=== PATIENT | female | born 1955 | race Caucasian/White ===

== ENCOUNTER 2019-01-30 18:53 | Inpatient (IN) | payer SELFPAY ==
[~2019-01-30] VITALS: Ht 167.6 cm; Wt 69.2 kg
[2019-01-30] MEDS ORDERED: IV NORMAL SALINE 500ML BAG 500 ML IV ONE (19:30)
[2019-01-30] MEDS ORDERED: ONDANSETRON PF 4 MG/2 ML VIAL. IV ONE ×2 (19:30→21:45)
[2019-01-30 19:46] LABS: BILIRUBIN,URINE NEGATIVE (NEG); CLARITY,URINE CLEAR; COLOR,URINE YELLOW; NITRITE,URINE NEGATIVE (NEG); PH,URINE 5.5; PROTEIN,URINE NEGATIVE (NEG-TRACE); UROBILINOGEN,URINE 0.2 mg/dL (0.2 mg/dL)
[2019-01-30 19:55] LABS: HEMATOCRIT 41.5 % (36.0-47.0); HEMOGLOBIN 14.2 g/dL (12.0-15.5); RED BLOOD COUNT 4.62 x10^6/uL (3.50-5.40); RED CELL DISTRIBUTION WIDTH 13.3 % (11.5-14.5)
[2019-01-30 20:01] LABS: RBC,URINE OCC /HPF (0-2)
[2019-01-30 20:02] LABS: BACTERIA,URINE FEW /HPF (0-FEW); SQUAMOUS EPITHELIAL CELL,UR FEW /LPF
[2019-01-30 20:10] LABS: CALCIUM 9.8 mg/dL (8.5-10.1); CREATININE 0.9 mg/dL (0.6-1.0); GFR 63.2; POTASSIUM 3.9 mmol/L (3.5-5.1)
[2019-01-30 20:15] LABS: ALBUMIN/GLOBULIN RATIO 1.1 (1.0-1.7); TOTAL BILIRUBIN 0.6 mg/dL (0.2-1.0); TOTAL PROTEIN 7.5 g/dL (6.4-8.2)
[2019-01-30] MEDS ORDERED: IOHEXOL 300 MG/ML 100ML VIAL. IV ONE (20:30)
[2019-01-30] MEDS ORDERED: MORPHINE SULFATE 2 MG/ML VIAL. IV ONE (21:00)
--- NOTE | 2019-01-30 21:00 | RAD ---
CT scan of the abdomen and pelvis with contrast 01/30/2019 CLINICAL HISTORY: Periumbilical pain. Nausea and constipation for several days TECHNIQUE: After the intravenous administration of 75 cc of Omnipaque 300, contiguous, 5 mm axial sections were obtained through the abdomen and pelvis. One or more of the following individualized dose reduction techniques were utilized for this study: 1. Automated exposure control. 2. Adjustment of the mA and/or kV according to patient size. 3. Use of iterative reconstruction technique. FINDINGS: Images through the lung bases demonstrate minimal dependent subsegmental atelectasis bilaterally. Rounded low-attenuation lesions are seen involving the superior liver which measure 3 mm 5 mm in size. These are consistent with hepatic cysts. The spleen, pancreas, adrenal glands and kidneys are within normal limits. The abdominal aorta tapers normally. The gallbladder is well-distended. No free fluid or free air is seen within the abdomen. The appendix is well-visualized and is within normal limits Dilated fluid-filled mid/distal jejunal loops are seen within the mid/lower abdomen. A transition point in the caliber of the bowel is seen in region of the distal jejunum/proximal ileum within the mid pelvis. The mid/distal ileum is normal in caliber. These findings are consistent with a small bowel obstruction. Images through pelvis demonstrate the urinary bladder to be contracted. Calcifications are seen within the pelvis consistent with phleboliths. A moderate amount of free fluid is seen within the pelvis. Degenerative changes are seen involving lower thoracic and mid and lower lumbar spine along with both hips. IMPRESSION: Findings are seen consistent with a small bowel obstruction as discussed above. Electronically signed by: Yosvany Rodriguez MD (01/30/2019 8:57 PM) [facility]
[2019-01-30] MEDS ORDERED: ONDANSETRON PF 4 MG/2 ML VIAL. IV PRN (21:30)
[2019-01-30] MEDS ORDERED: MORPHINE SULFATE 2 MG/ML VIAL. IV PRN (21:30)
--- NOTE | 2019-01-30 21:31 | PHYS DOC ---
Past Medical History Past Medical History: No Pertinent History Past Surgical History: Hysterectomy Additional Past Surgical Histo: BACK SX Alcohol Use: Rarely Drug Use: None Adult General Chief Complaint Chief Complaint: ABDOMINAL PAIN HPI HPI Patient is a 63 year old [female] who presents with [generalized abdominal pain starting today the pain comes more severely asked every 90 minutes. Reports pain has been increasingly worse throughout the does report she has had some constipation the last few days, has tried some laxatives, otherwise move 4-5 small bowel movements today, but nothing that felt like it was much of a bowel movement at all. States she has had prior abdominal surgeries, hysterectomy several years ago. States she does feel a bit nauseous, denies any vomiting today.] Review of Systems Review of Systems Constitutional: Denies fever or chills [] Respiratory: Denies cough or shortness of breath [] Cardiovascular: No additional information not addressed in HPI [] GI: Reports sharp abdominal pain, nausea, denies vomiting, bloody stools or diarrhea reports some constipation over the last 2 days[] : Denies dysuria or hematuria [] Musculoskeletal: Denies back pain or joint pain [] Integument: Denies rash or skin lesions [] Neurologic: Denies headache, focal weakness or sensory changes [] Endocrine: Denies polyuria or polydipsia [] All other systems were reviewed and found to be within normal limits, except as documented in this note. Current Medications Current Medications Current Medications Medications (Trade) Dose Ordered Sig/[facility] Start Time Stop Time Status Last Admin Dose Admin Iohexol (Omnipaque 300 Mg/ml) 75 ml 1X ONCE 01/30/19 20:30 01/30/19 20:31 DC 01/30/19 20:34 75 ML Morphine Sulfate (Morphine Sulfate) 2 mg 1X ONCE 01/30/19 21:00 01/30/19 21:01 DC 01/30/19 21:30 2 MG Ondansetron HCl (Zofran) 4 mg 1X ONCE 01/30/19 19:30 01/30/19 19:45 DC 01/30/19 19:49 4 MG Sodium Chloride 500 ml @ 500 mls/hr 1X ONCE 01/30/19 19:30 01/30/19 20:29 DC 01/30/19 19:49 500 MLS/HR Allergies Allergies Allergies Coded Allergies Type Severity Reaction Last Updated Verified No Known Drug Allergies 01/30/19 No Physical Exam Physical Exam Constitutional: Well developed, well nourished, no acute distress, non-toxic appearance. [] HENT: Normocephalic, atraumatic, bilateral external ears normal, oropharynx moist, no oral exudates, nose normal. [] Cardiovascular:Heart rate regular rhythm, no murmur [] Lungs & Thorax: Bilateral breath sounds clear to auscultation [] Abdomen: Bowel sounds normal, soft, no tenderness, no masses, no pulsatile masses. Slightly decreased bowel movement sounds to right side[] Skin: Warm, dry, no erythema, no rash. [] Back: No tenderness, no CVA tenderness. [] Extremities: No tenderness, no cyanosis, no clubbing, ROM intact, no edema. [] Neurologic: Alert and oriented X 3, normal motor function, normal sensory function, no focal deficits noted. [] Psychologic: Affect normal, judgement normal, mood normal. [] Current Patient Data Vital Signs Vital Signs Date Time Temp Pulse Resp B/P (MAP) Pulse Ox O2 Delivery O2 Flow Rate FiO2 01/30/19 21:00 62 136/65 (88) 98 Room Air 01/30/19 19:00 98.4 14 98.4 Lab Values Laboratory Tests Test 01/30/19 19:05 01/30/19 19:45 Urine Collection Type Unknown Urine Color Yellow Urine Clarity Clear Urine pH 5.5 Urine Specific [place] 1.025 Urine Protein Negative mg/dL (NEG-TRACE) Urine Glucose (UA) Negative mg/dL (NEG) Urine Ketones (Stick) 40 mg/dL (NEG) Urine Blood Negative (NEG) Urine Nitrite Negative (NEG) Urine Bilirubin Negative (NEG) Urine Urobilinogen Dipstick 0.2 mg/dL (0.2 mg/dL) Urine Leukocyte Esterase Trace (NEG) Urine RBC Occ /HPF (0-2) Urine WBC 1-4 /HPF (0-4) Urine Squamous Epithelial Cells Few /LPF Urine Bacteria Few /HPF (0-FEW) White Blood Count 13.0 x10^3/uL (4.0-11.0) H Red Blood Count 4.62 x10^6/uL (3.50-5.40) Hemoglobin 14.2 g/dL (12.0-15.5) Hematocrit 41.5 % (36.0-47.0) Mean Corpuscular Volume 90 fL (79-100) Mean Corpuscular Hemoglobin 31 pg (25-35) Mean Corpuscular Hemoglobin Concent 34 g/dL (31-37) Red Cell Distribution Width 13.3 % (11.5-14.5) Platelet Count 266 x10^3/uL (140-400) Sodium Level 141 mmol/L (136-145) Potassium Level 3.9 mmol/L (3.5-5.1) Chloride Level 103 mmol/L (98-107) Carbon Dioxide Level 27 mmol/L (21-32) Anion Gap 11 (6-14) Blood Urea Nitrogen 16 mg/dL (7-20) Creatinine 0.9 mg/dL (0.6-1.0) Estimated GFR (Cockcroft-Gault) 63.2 BUN/Creatinine Ratio 18 (6-20) Glucose Level 105 mg/dL (70-99) H Calcium Level 9.8 mg/dL (8.5-10.1) Total Bilirubin 0.6 mg/dL (0.2-1.0) Aspartate Amino Transferase (AST) 16 U/L (15-37) Alanine Aminotransferase (ALT) 13 U/L (14-59) L Alkaline Phosphatase 89 U/L (46-116) Troponin I Quantitative < 0.017 ng/mL (0.000-0.055) Total Protein 7.5 g/dL (6.4-8.2) Albumin 4.0 g/dL (3.4-5.0) Albumin/Globulin Ratio 1.1 (1.0-1.7) Lipase 105 U/L (73-393) Laboratory Tests 01/30/19 19:45 Laboratory Tests 01/30/19 19:45 EKG EKG Sinus rhythm without ectopy or changes. No STEMI. @ 1948 [] Radiology/Procedures Radiology/Procedures []FINDINGS: Images through the lung bases demonstrate minimal dependent subsegmental atelectasis bilaterally. Rounded low-attenuation lesions are seen involving the superior liver which measure 3 mm 5 mm in size. These are consistent with hepatic cysts. The spleen, pancreas, adrenal glands and kidneys are within normal limits. The abdominal aorta tapers normally. The gallbladder is well-distended. No free fluid or free air is seen within the abdomen. The appendix is well-visualized and is within normal limits Dilated fluid-filled mid/distal jejunal loops are seen within the mid/lower abdomen. A transition point in the caliber of the bowel is seen in region of the distal jejunum/proximal ileum within the mid pelvis. The mid/distal ileum is normal in caliber. These findings are consistent with a small bowel obstruction. Images through pelvis demonstrate the urinary bladder to be contracted. Calcifications are seen within the pelvis consistent with phleboliths. A moderate amount of free fluid is seen within the pelvis. Degenerative changes are seen involving lower thoracic and mid and lower lumbar spine along with both hips. IMPRESSION: Findings are seen consistent with a small bowel obstruction as discussed above. Electronically signed by: Yosvany Rodriguez MD (01/30/2019 8:57 PM) [facility] Course & Med Decision Making Course & Med Decision Making Pertinent Labs and Imaging studies reviewed. (See chart for details) [Discussed with Dr Wolfe, recommends admission, will see in hospital tomorrow, admit to HOspitalist; Discussed with Dr Dorsey, agrees to admission, will keep patient NPO and IV fluids. Patient in agreement with plan] Dragon Disclaimer Dragon Disclaimer This electronic medical record was generated, in whole or in part, using a voice recognition dictation system. Departure Departure Impression: Primary Impression: Small bowel obstruction Disposition: ADMITTED INPATIENT Admitting Physician: JCARLOS Condition: STABLE Referrals: SHELDON THOMPSON MSN, RN, [facility] (PCP) YOEL HALEY APRN Jan 30, 2019 21:31
[2019-01-30 22:45] VITALS: BP 120/57
[2019-01-30] MEDS: IV NORMAL SALINE 1000ML BAG 1,000 ML IV SCH (23:00)
[2019-01-31 03:00] VITALS: BP 121/49
[2019-01-31 05:27] LABS: BASO % 0 % (0-3); EOS # 0.1 x10^3/uL (0.0-0.7); EOS % 1 % (0-3); HEMATOCRIT 38.3 % (36.0-47.0); LYMPH # 1.5 x10^3/uL (1.0-4.8); LYMPH % 16 % (24-48); MEAN CORPUSCULAR HEMOGLOBIN 31 pg (25-35); MEAN CORPUSCULAR HGB CONC 34 g/dL (31-37); MEAN CORPUSCULAR VOLUME 91 fL (79-100); MONO # 0.9 x10^3/uL (0.0-1.1); MONO % 10 % (0-9); NEUT # 6.9 x10^3/uL (1.8-7.7); NEUT % 73 % (31-73); PLATELET COUNT 234 x10^3/uL (140-400); WHITE BLOOD COUNT 9.4 x10^3/uL (4.0-11.0)
[2019-01-31 06:02] LABS: CALCIUM 8.4 mg/dL (8.5-10.1); CREATININE 0.8 mg/dL (0.6-1.0); GFR 72.4; POTASSIUM 4.1 mmol/L (3.5-5.1)
[2019-01-31] MEDS: IV NORMAL SALINE 1000ML BAG 1,000 ML IV SCH ×2 (06:42→15:21)
[2019-01-31 07:00] VITALS: BP 98/41
[2019-01-31 11:00] VITALS: BP 102/33
--- NOTE | 2019-01-31 11:34 | PDOC1 ---
History and Physical Date of Admission Date of Admission DATE: 01/31/19 TIME: 11:31 Identification/Chief Complaint Chief Complaint Abdominal pain Source Source: Patient History of Present Illness History of Present Illness Ms Currie is a 63 year old F who presents with generalized abdominal pain starting today the pain comes more severely asked every 90 minutes. Reports pain has been increasingly worse throughout the does report she has had some constipation the last few days, has tried some laxatives, otherwise move 4-5 small bowel movements today, but nothing that felt like it was much of a bowel movement at all. States she has had prior abdominal surgeries, hysterectomy several years ago. States she does feel a bit nauseous, denies any vomiting today. Found with SBO on CT abdomen. Leukocytosis 13K. Admitted for further care On ROS had a pretty bad headache, pain improved with morphine dosing. No flatulence, no BM. Past Medical History Cardiovascular: No pertinent hx Pulmonary: No pertinent hx GI: No pertinent hx Heme/Onc: No pertinent hx Hepatobiliary: No pertinent hx Psych: No pertinent hx Rheumatologic: No pertinent hx Infectious disease: No pertinent hx ENT: No pertinent hx Renal/: No pertinent hx Endocrine: No pertinent hx Dermatology: No pertinent hx Past Surgical History Past Surgical History: Hysterectomy Family History Family History: High Cholestrol Social History Smoke: No ALCOHOL: none Drugs: None Current Problem List Problem List Problems Medical Problems: (1) Small bowel obstruction Status: Acute Current Medications Current Medications Current Medications Sodium Chloride 500 ml @ 500 mls/hr 1X ONCE IV Last administered on 01/30/19at 19:49; Start 01/30/19 at 19:30; Stop 01/30/19 at 20:29; Status DC Ondansetron HCl (Zofran) 4 mg 1X ONCE IV Last administered on 01/30/19at 19:49; Start 01/30/19 at 19:30; Stop 01/30/19 at 19:45; Status DC Iohexol (Omnipaque 300 Mg/ml) 75 ml 1X ONCE IV Last administered on 01/30/19at 20:34; Start 01/30/19 at 20:30; Stop 01/30/19 at 20:31; Status DC Morphine Sulfate (Morphine Sulfate) 2 mg 1X ONCE IV Last administered on 01/30/19at 21:30; Start 01/30/19 at 21:00; Stop 01/30/19 at 21:01; Status DC Ondansetron HCl (Zofran) 4 mg PRN Q8HRS PRN IV NAUSEA/VOMITING; Start 01/30/19 at 21:30; Stop 01/31/19 at 21:29 Morphine Sulfate (Morphine Sulfate) 2 mg PRN Q2HR PRN IV PAIN; Start 01/30/19 at 21:30; Stop 01/31/19 at 21:29 Sodium Chloride 1,000 ml @ 125 mls/hr Q8H IV Last administered on 01/31/19at 06:42; Start 01/30/19 at 21:30; Stop 01/31/19 at 21:29 Ondansetron HCl (Zofran) 4 mg 1X ONCE IV Last administered on 01/30/19at 21:43; Start 01/30/19 at 21:45; Stop 01/30/19 at 21:46; Status DC Allergies Allergies: Coded Allergies: No Known Drug Allergies (Unverified , 01/30/19) ROS General: YES: Appetite; No: Chills, Night Sweats, Fatigue, Malaise, Other PSYCHOLOGICAL ROS: No: Anxiety, Behavioral Disorder, Concentration difficultie, Decreased libido, Depression, Disorientation, Hallucinations, Hostility, Irritablity, Memory difficulties, Mood Swings, Obsessive thoughts, Physical abuse, Sexual abuse, Sleep disturbances, Suicidal ideation, Other Eyes: No Blurry vision, No Decreased vision, No Double vision, No Dry eyes, No Excessive tearing, No Eye Pain, No Itchy Eyes, No Loss of vision, No Photophobia, No Scotomata, No Uses contacts, No Uses glasses, No Other HEENT: No: Heacaches, Visual Changes, Hearing change, Nasal congestion, Nasal discharge, Oral lesions, Sinus pain, Sore Throat, Epistaxis, Sneezing, Snoring, Tinnitus, Vertigo, Vocal changes, Other ALLERGY AND IMMUNOLOGY: No: Hives, Insect Bite Sensitivity, Itchy/Watery Eyes, Nasal Congestion, Post Nasal Drip, Seasonal Allergies, Other Hematological and Lymphatic: No: Bleeding Problems, Blood Clots, Blood Transfusions, Brusing, Night Sweats, Pallor, Swollen Lymph Nodes, Other ENDOCRINE: No: Breast Changes, Galactorrhea, Hair Pattern Changes, Hot Flashes, Malaise/lethargy, Mood Swings, Palpitations, Polydipsia/polyuria, Skin Changes, Temperature Intolerance, Unexpected Weight Changes, Other Breast: No New/Changing Breast Lumps, No Nipple changes, No Nipple discharge, No Other Respiratory: No: Cough, Hemoptysis, Orthopnea, Pleuritic Pain, Shortness of breath, SOB with excertion, Sputum Changes, Stridor, Tachypnea, Wheezing, Other Cardiovascular: No Chest Pain, No Palpitations, No Orthopnea, No Paroxysmal Noc. Dyspnea, No Edema, No Lt Headedness, No Other Gastrointestinal: Yes Nausea, Yes Vomiting, Yes Abdominal Pain, Yes Constipation; No Diarrhea, No Melena, No Hematochezia, No Other Genitourinary: No Dysuria, No Frequency, No Incontinence, No Hematuria, No Retention, No Discharge, No Urgency, No Pain, No Flank Pain, No Other, No , No , No , No , No , No , No Musculoskeletal: No Gait Disturbance, No Joint Pain, No Joint Stiffness, No Joint Swelling, No Muscle Pain, No Muscular Weakness, No Pain In:, No Swelling In:, No Other Neurological: No Behavorial Changes, No Bowel/Bladder ControlChng, No Confusion, No Dizziness, No Gait Disturbance, No Headaches, No Impaired Coord/balance, No Memory Loss, No Numbness/Tingling, No Seizures, No Speech Problems, No Tremors, No Visual Changes, No Weakness, No Other Skin: No Dry Skin, No Eczema, No Hair Changes, No Lumps, No Mole Changes, No Mottling, No Nail Changes, No Pruritus, No Rash, No Skin Lesion Changes, No Other, No Acne Physical Exam General: Alert, Oriented X3, Cooperative, No acute distress HEENT: Atraumatic, PERRLA, EOMI, Mucous membr. moist/pink Lungs: Clear to auscultation, Normal air movement Heart: S1S2, RRR, no gallops, no murmurs Abdomen: Normal bowel sounds, No hepatosplenomegaly, No masses, Other (diffuse mild abdominal pain) Extremities: No clubbing, No cyanosis, No edema, Normal pulses, No tenderness/swelling Skin: No rashes, No breakdown, No significant lesion Neuro: Normal gait, Normal speech, Strength at 5/5 X4 ext, Normal tone, Sensation intact, Cranial nerves 3-12 NL, Reflexes 2+ Psych/Mental Status: Mental status NL, Mood NL Vitals Vitals Vital Signs Date Time Temp Pulse Resp B/P (MAP) Pulse Ox O2 Delivery O2 Flow Rate FiO2 01/31/19 11:00 97.8 50 12 102/33 (56) 95 Room Air 97.8 Labs Labs Laboratory Tests Test 01/30/19 19:05 01/30/19 19:45 01/31/19 04:55 Urine Collection Type Unknown Urine Color Yellow Urine Clarity Clear Urine pH 5.5 Urine Specific [place] 1.025 Urine Protein Negative mg/dL (NEG-TRACE) Urine Glucose (UA) Negative mg/dL (NEG) Urine Ketones (Stick) 40 mg/dL (NEG) Urine Blood Negative (NEG) Urine Nitrite Negative (NEG) Urine Bilirubin Negative (NEG) Urine Urobilinogen Dipstick 0.2 mg/dL (0.2 mg/dL) Urine Leukocyte Esterase Trace (NEG) Urine RBC Occ /HPF (0-2) Urine WBC 1-4 /HPF (0-4) Urine Squamous Epithelial Cells Few /LPF Urine Bacteria Few /HPF (0-FEW) White Blood Count 13.0 x10^3/uL (4.0-11.0) 9.4 x10^3/uL (4.0-11.0) Red Blood Count 4.62 x10^6/uL (3.50-5.40) 4.20 x10^6/uL (3.50-5.40) Hemoglobin 14.2 g/dL (12.0-15.5) 13.0 g/dL (12.0-15.5) Hematocrit 41.5 % (36.0-47.0) 38.3 % (36.0-47.0) Mean Corpuscular Volume 90 fL (79-100) 91 fL (79-100) Mean Corpuscular Hemoglobin 31 pg (25-35) 31 pg (25-35) Mean Corpuscular Hemoglobin Concent 34 g/dL (31-37) 34 g/dL (31-37) Red Cell Distribution Width 13.3 % (11.5-14.5) 13.0 % (11.5-14.5) Platelet Count 266 x10^3/uL (140-400) 234 x10^3/uL (140-400) Sodium Level 141 mmol/L (136-145) 145 mmol/L (136-145) Potassium Level 3.9 mmol/L (3.5-5.1) 4.1 mmol/L (3.5-5.1) Chloride Level 103 mmol/L (98-107) 110 mmol/L (98-107) Carbon Dioxide Level 27 mmol/L (21-32) 28 mmol/L (21-32) Anion Gap 11 (6-14) 7 (6-14) Blood Urea Nitrogen 16 mg/dL (7-20) 11 mg/dL (7-20) Creatinine 0.9 mg/dL (0.6-1.0) 0.8 mg/dL (0.6-1.0) Estimated GFR (Cockcroft-Gault) 63.2 72.4 BUN/Creatinine Ratio 18 (6-20) Glucose Level 105 mg/dL (70-99) 85 mg/dL (70-99) Calcium Level 9.8 mg/dL (8.5-10.1) 8.4 mg/dL (8.5-10.1) Total Bilirubin 0.6 mg/dL (0.2-1.0) Aspartate Amino Transf (AST/SGOT) 16 U/L (15-37) Alanine Aminotransferase (ALT/SGPT) 13 U/L (14-59) Alkaline Phosphatase 89 U/L (46-116) Troponin I Quantitative < 0.017 ng/mL (0.000-0.055) Total Protein 7.5 g/dL (6.4-8.2) Albumin 4.0 g/dL (3.4-5.0) Albumin/Globulin Ratio 1.1 (1.0-1.7) Lipase 105 U/L (73-393) Neutrophils (%) (Auto) 73 % (31-73) Lymphocytes (%) (Auto) 16 % (24-48) Monocytes (%) (Auto) 10 % (0-9) Eosinophils (%) (Auto) 1 % (0-3) Basophils (%) (Auto) 0 % (0-3) Neutrophils # (Auto) 6.9 x10^3/uL (1.8-7.7) Lymphocytes # (Auto) 1.5 x10^3/uL (1.0-4.8) Monocytes # (Auto) 0.9 x10^3/uL (0.0-1.1) Eosinophils # (Auto) 0.1 x10^3/uL (0.0-0.7) Basophils # (Auto) 0.0 x10^3/uL (0.0-0.2) Laboratory Tests Test 01/30/19 19:05 01/30/19 19:45 01/31/19 04:55 Urine Collection Type Unknown Urine Color Yellow Urine Clarity Clear Urine pH 5.5 Urine Specific [place] 1.025 Urine Protein Negative mg/dL (NEG-TRACE) Urine Glucose (UA) Negative mg/dL (NEG) Urine Ketones (Stick) 40 mg/dL (NEG) Urine Blood Negative (NEG) Urine Nitrite Negative (NEG) Urine Bilirubin Negative (NEG) Urine Urobilinogen Dipstick 0.2 mg/dL (0.2 mg/dL) Urine Leukocyte Esterase Trace (NEG) Urine RBC Occ /HPF (0-2) Urine WBC 1-4 /HPF (0-4) Urine Squamous Epithelial Cells Few /LPF Urine Bacteria Few /HPF (0-FEW) White Blood Count 13.0 x10^3/uL (4.0-11.0) 9.4 x10^3/uL (4.0-11.0) Red Blood Count 4.62 x10^6/uL (3.50-5.40) 4.20 x10^6/uL (3.50-5.40) Hemoglobin 14.2 g/dL (12.0-15.5) 13.0 g/dL (12.0-15.5) Hematocrit 41.5 % (36.0-47.0) 38.3 % (36.0-47.0) Mean Corpuscular Volume 90 fL (79-100) 91 fL (79-100) Mean Corpuscular Hemoglobin 31 pg (25-35) 31 pg (25-35) Mean Corpuscular Hemoglobin Concent 34 g/dL (31-37) 34 g/dL (31-37) Red Cell Distribution Width 13.3 % (11.5-14.5) 13.0 % (11.5-14.5) Platelet Count 266 x10^3/uL (140-400) 234 x10^3/uL (140-400) Sodium Level 141 mmol/L (136-145) 145 mmol/L (136-145) Potassium Level 3.9 mmol/L (3.5-5.1) 4.1 mmol/L (3.5-5.1) Chloride Level 103 mmol/L (98-107) 110 mmol/L (98-107) Carbon Dioxide Level 27 mmol/L (21-32) 28 mmol/L (21-32) Anion Gap 11 (6-14) 7 (6-14) Blood Urea Nitrogen 16 mg/dL (7-20) 11 mg/dL (7-20) Creatinine 0.9 mg/dL (0.6-1.0) 0.8 mg/dL (0.6-1.0) Estimated GFR (Cockcroft-Gault) 63.2 72.4 BUN/Creatinine Ratio 18 (6-20) Glucose Level 105 mg/dL (70-99) 85 mg/dL (70-99) Calcium Level 9.8 mg/dL (8.5-10.1) 8.4 mg/dL (8.5-10.1) Total Bilirubin 0.6 mg/dL (0.2-1.0) Aspartate Amino Transf (AST/SGOT) 16 U/L (15-37) Alanine Aminotransferase (ALT/SGPT) 13 U/L (14-59) Alkaline Phosphatase 89 U/L (46-116) Troponin I Quantitative < 0.017 ng/mL (0.000-0.055) Total Protein 7.5 g/dL (6.4-8.2) Albumin 4.0 g/dL (3.4-5.0) Albumin/Globulin Ratio 1.1 (1.0-1.7) Lipase 105 U/L (73-393) Neutrophils (%) (Auto) 73 % (31-73) Lymphocytes (%) (Auto) 16 % (24-48) Monocytes (%) (Auto) 10 % (0-9) Eosinophils (%) (Auto) 1 % (0-3) Basophils (%) (Auto) 0 % (0-3) Neutrophils # (Auto) 6.9 x10^3/uL (1.8-7.7) Lymphocytes # (Auto) 1.5 x10^3/uL (1.0-4.8) Monocytes # (Auto) 0.9 x10^3/uL (0.0-1.1) Eosinophils # (Auto) 0.1 x10^3/uL (0.0-0.7) Basophils # (Auto) 0.0 x10^3/uL (0.0-0.2) Images Images CT abdomen/pelvis - Images through the lung bases demonstrate minimal dependent subsegmental atelectasis bilaterally. Rounded low-attenuation lesions are seen involving the superior liver which measure 3 mm 5 mm in size. These are consistent with hepatic cysts. The spleen, pancreas, adrenal glands and kidneys are within normal limits. The abdominal aorta tapers normally. The gallbladder is well-distended. No free fluid or free air is seen within the abdomen. The appendix is well-visualized and is within normal limits Dilated fluid-filled mid/distal jejunal loops are seen within the mid/lower abdomen. A transition point in the caliber of the bowel is seen in region of the distal jejunum/proximal ileum within the mid pelvis. The mid/distal ileum is normal in caliber. These findings are consistent with a small bowel obstruction. Images through pelvis demonstrate the urinary bladder to be contracted. Calcifications are seen within the pelvis consistent with phleboliths. A moderate amount of free fluid is seen within the pelvis. Degenerative changes are seen involving lower thoracic and mid and lower lumbar spine along with both hips. IMPRESSION: Findings are seen consistent with a small bowel obstruction as discussed above. VTE Prophylaxis Ordered VTE Prophylaxis Devices: Yes VTE Pharmacological Prophylaxi: No Assessment/Plan Assessment/Plan A/P: SBO - will keep NPO, IV pain control. Consulted general surgery Intractable headache - will add compazine, toradol Leukocytosis - likely 2/2 SBO will monitor FEN - NPO PPX - SCDs FULL CODE Dispo - inpatient for SBO BRENT EATON MD Jan 31, 2019 11:33
[2019-01-31] MEDS ORDERED: KETOROLAC 15 MG/ML VIAL. IV PRN (13:15)
[2019-01-31] MEDS ORDERED: PROCHLORPERAZINE 10 MG/2 ML VIAL. IV PRN (13:15)
[2019-01-31] MEDS ORDERED: ONDANSETRON PF 4 MG/2 ML VIAL. IV PRN (13:15)
[2019-01-31] MEDS: FAMOTIDINE 20 MG/2 ML VIAL IVP SCH ×2 (13:23→20:05)
[2019-01-31] MEDS ORDERED: BISACODYL 10 MG SUPP.RECT. PR PRN (14:30)
[2019-01-31] MEDS ORDERED: DOCUSATE SODIUM 283 MG/5 ML ENEMA. PR PRN (14:30)
[2019-01-31 15:00] VITALS: BP 118/41
--- NOTE | 2019-01-31 18:05 | PDOC2 ---
CONSULT Date of Consult Date of Consult DATE: 01/31/19 TIME: 18:02 Reason for Consult Reason for Consult: SBO Referring Physician Referring Physician: Dr. Macias Identification/Chief Complaint Chief Complaint periumbilical crampy abd pain Source Source: Chart review, Patient History of Present Illness Reason for Visit: 63 yo F presents with c/o periumbilical crampy abd pain today. No previous episodes. Had some constipation and took laxatives with small frequent results. Pt seen in hospital room and reports feeling well. No N/V currently and pain is resolved. Past Medical History Cardiovascular: No pertinent hx Pulmonary: No pertinent hx GI: No pertinent hx Heme/Onc: No pertinent hx Hepatobiliary: No pertinent hx Psych: No pertinent hx Rheumatologic: No pertinent hx Infectious disease: No pertinent hx ENT: No pertinent hx Renal/: No pertinent hx Endocrine: No pertinent hx Dermatology: No pertinent hx Past Surgical History Past Surgical History: Hysterectomy Family History Family History: High Cholestrol Social History No ALCOHOL: none Drugs: None Current Problem List Problem List Problems Medical Problems: (1) Small bowel obstruction Status: Acute Current Medications Current Medications Current Medications Sodium Chloride 500 ml @ 500 mls/hr 1X ONCE IV Last administered on 01/30/19at 19:49; Start 01/30/19 at 19:30; Stop 01/30/19 at 20:29; Status DC Ondansetron HCl (Zofran) 4 mg 1X ONCE IV Last administered on 01/30/19at 19:49; Start 01/30/19 at 19:30; Stop 01/30/19 at 19:45; Status DC Iohexol (Omnipaque 300 Mg/ml) 75 ml 1X ONCE IV Last administered on 01/30/19at 20:34; Start 01/30/19 at 20:30; Stop 01/30/19 at 20:31; Status DC Morphine Sulfate (Morphine Sulfate) 2 mg 1X ONCE IV Last administered on 01/30/19at 21:30; Start 01/30/19 at 21:00; Stop 01/30/19 at 21:01; Status DC Ondansetron HCl (Zofran) 4 mg PRN Q8HRS PRN IV NAUSEA/VOMITING; Start 01/30/19 at 21:30; Stop 01/31/19 at 13:05; Status DC Morphine Sulfate (Morphine Sulfate) 2 mg PRN Q2HR PRN IV SEVERE PAIN; Start 01/30/19 at 21:30 Sodium Chloride 1,000 ml @ 125 mls/hr Q8H IV Last administered on 01/31/19at 15:21; Start 01/30/19 at 21:30; Stop 01/31/19 at 21:29 Ondansetron HCl (Zofran) 4 mg 1X ONCE IV Last administered on 01/30/19at 21:43; Start 01/30/19 at 21:45; Stop 01/30/19 at 21:46; Status DC Ketorolac Tromethamine (Toradol 15mg Vial) 15 mg PRN Q6HRS PRN IV MILD - MODERAE PAIN; Start 01/31/19 at 13:15; Stop 02/05/19 at 13:14 Prochlorperazine Edisylate (Compazine) 5 mg PRN Q6HRS PRN IV NAUSEA/VOMITING/HEADACHE Last administered on 01/31/19at 13:25; Start 01/31/19 at 13:15 Ondansetron HCl (Zofran) 4 mg PRN Q6HRS PRN IV NAUSEA/VOMITING, 1ST CHOICE; Start 01/31/19 at 13:15 Famotidine (Pepcid Vial) 20 mg BID IVP Last administered on 01/31/19at 13:25; Start 01/31/19 at 13:15 Bisacodyl (Dulcolax Supp) 10 mg DAILY PRN MO CONSTIPATION, 1ST CHOICE; Start 01/31/19 at 14:30 Docusate Sodium (Enemeez) 283 mg PRN DAILY PRN [place] CONSTIPATION, 2ND CHOICE; Start 01/31/19 at 14:30 Allergies Allergies: Coded Allergies: No Known Drug Allergies (Unverified , 01/30/19) ROS HEENT: YES: Heacaches Gastrointestinal: Yes Abdominal Pain Physical Exam General: Alert, Oriented X3, Cooperative, No acute distress HEENT: Atraumatic, EOMI Lungs: Normal air movement Abdomen: Soft, No tenderness Extremities: No clubbing, No cyanosis Skin: No rashes, No breakdown Neuro: Normal speech, Sensation intact Psych/Mental Status: Mental status NL, Mood NL Vitals VITALS Vital Signs Date Time Temp Pulse Resp B/P (MAP) Pulse Ox O2 Delivery O2 Flow Rate FiO2 01/31/19 15:00 97.4 61 12 118/41 (66) 96 Room Air 97.4 Labs Labs Laboratory Tests Test 01/30/19 19:05 01/30/19 19:45 01/31/19 04:55 Urine Collection Type Unknown Urine Color Yellow Urine Clarity Clear Urine pH 5.5 Urine Specific [place] 1.025 Urine Protein Negative mg/dL (NEG-TRACE) Urine Glucose (UA) Negative mg/dL (NEG) Urine Ketones (Stick) 40 mg/dL (NEG) Urine Blood Negative (NEG) Urine Nitrite Negative (NEG) Urine Bilirubin Negative (NEG) Urine Urobilinogen Dipstick 0.2 mg/dL (0.2 mg/dL) Urine Leukocyte Esterase Trace (NEG) Urine RBC Occ /HPF (0-2) Urine WBC 1-4 /HPF (0-4) Urine Squamous Epithelial Cells Few /LPF Urine Bacteria Few /HPF (0-FEW) White Blood Count 13.0 x10^3/uL (4.0-11.0) 9.4 x10^3/uL (4.0-11.0) Red Blood Count 4.62 x10^6/uL (3.50-5.40) 4.20 x10^6/uL (3.50-5.40) Hemoglobin 14.2 g/dL (12.0-15.5) 13.0 g/dL (12.0-15.5) Hematocrit 41.5 % (36.0-47.0) 38.3 % (36.0-47.0) Mean Corpuscular Volume 90 fL (79-100) 91 fL (79-100) Mean Corpuscular Hemoglobin 31 pg (25-35) 31 pg (25-35) Mean Corpuscular Hemoglobin Concent 34 g/dL (31-37) 34 g/dL (31-37) Red Cell Distribution Width 13.3 % (11.5-14.5) 13.0 % (11.5-14.5) Platelet Count 266 x10^3/uL (140-400) 234 x10^3/uL (140-400) Sodium Level 141 mmol/L (136-145) 145 mmol/L (136-145) Potassium Level 3.9 mmol/L (3.5-5.1) 4.1 mmol/L (3.5-5.1) Chloride Level 103 mmol/L (98-107) 110 mmol/L (98-107) Carbon Dioxide Level 27 mmol/L (21-32) 28 mmol/L (21-32) Anion Gap 11 (6-14) 7 (6-14) Blood Urea Nitrogen 16 mg/dL (7-20) 11 mg/dL (7-20) Creatinine 0.9 mg/dL (0.6-1.0) 0.8 mg/dL (0.6-1.0) Estimated GFR (Cockcroft-Gault) 63.2 72.4 BUN/Creatinine Ratio 18 (6-20) Glucose Level 105 mg/dL (70-99) 85 mg/dL (70-99) Calcium Level 9.8 mg/dL (8.5-10.1) 8.4 mg/dL (8.5-10.1) Total Bilirubin 0.6 mg/dL (0.2-1.0) Aspartate Amino Transf (AST/SGOT) 16 U/L (15-37) Alanine Aminotransferase (ALT/SGPT) 13 U/L (14-59) Alkaline Phosphatase 89 U/L (46-116) Troponin I Quantitative < 0.017 ng/mL (0.000-0.055) Total Protein 7.5 g/dL (6.4-8.2) Albumin 4.0 g/dL (3.4-5.0) Albumin/Globulin Ratio 1.1 (1.0-1.7) Lipase 105 U/L (73-393) Neutrophils (%) (Auto) 73 % (31-73) Lymphocytes (%) (Auto) 16 % (24-48) Monocytes (%) (Auto) 10 % (0-9) Eosinophils (%) (Auto) 1 % (0-3) Basophils (%) (Auto) 0 % (0-3) Neutrophils # (Auto) 6.9 x10^3/uL (1.8-7.7) Lymphocytes # (Auto) 1.5 x10^3/uL (1.0-4.8) Monocytes # (Auto) 0.9 x10^3/uL (0.0-1.1) Eosinophils # (Auto) 0.1 x10^3/uL (0.0-0.7) Basophils # (Auto) 0.0 x10^3/uL (0.0-0.2) Laboratory Tests Test 01/30/19 19:05 01/30/19 19:45 01/31/19 04:55 Urine Collection Type Unknown Urine Color Yellow Urine Clarity Clear Urine pH 5.5 Urine Specific [place] 1.025 Urine Protein Negative mg/dL (NEG-TRACE) Urine Glucose (UA) Negative mg/dL (NEG) Urine Ketones (Stick) 40 mg/dL (NEG) Urine Blood Negative (NEG) Urine Nitrite Negative (NEG) Urine Bilirubin Negative (NEG) Urine Urobilinogen Dipstick 0.2 mg/dL (0.2 mg/dL) Urine Leukocyte Esterase Trace (NEG) Urine RBC Occ /HPF (0-2) Urine WBC 1-4 /HPF (0-4) Urine Squamous Epithelial Cells Few /LPF Urine Bacteria Few /HPF (0-FEW) White Blood Count 13.0 x10^3/uL (4.0-11.0) 9.4 x10^3/uL (4.0-11.0) Red Blood Count 4.62 x10^6/uL (3.50-5.40) 4.20 x10^6/uL (3.50-5.40) Hemoglobin 14.2 g/dL (12.0-15.5) 13.0 g/dL (12.0-15.5) Hematocrit 41.5 % (36.0-47.0) 38.3 % (36.0-47.0) Mean Corpuscular Volume 90 fL (79-100) 91 fL (79-100) Mean Corpuscular Hemoglobin 31 pg (25-35) 31 pg (25-35) Mean Corpuscular Hemoglobin Concent 34 g/dL (31-37) 34 g/dL (31-37) Red Cell Distribution Width 13.3 % (11.5-14.5) 13.0 % (11.5-14.5) Platelet Count 266 x10^3/uL (140-400) 234 x10^3/uL (140-400) Sodium Level 141 mmol/L (136-145) 145 mmol/L (136-145) Potassium Level 3.9 mmol/L (3.5-5.1) 4.1 mmol/L (3.5-5.1) Chloride Level 103 mmol/L (98-107) 110 mmol/L (98-107) Carbon Dioxide Level 27 mmol/L (21-32) 28 mmol/L (21-32) Anion Gap 11 (6-14) 7 (6-14) Blood Urea Nitrogen 16 mg/dL (7-20) 11 mg/dL (7-20) Creatinine 0.9 mg/dL (0.6-1.0) 0.8 mg/dL (0.6-1.0) Estimated GFR (Cockcroft-Gault) 63.2 72.4 BUN/Creatinine Ratio 18 (6-20) Glucose Level 105 mg/dL (70-99) 85 mg/dL (70-99) Calcium Level 9.8 mg/dL (8.5-10.1) 8.4 mg/dL (8.5-10.1) Total Bilirubin 0.6 mg/dL (0.2-1.0) Aspartate Amino Transf (AST/SGOT) 16 U/L (15-37) Alanine Aminotransferase (ALT/SGPT) 13 U/L (14-59) Alkaline Phosphatase 89 U/L (46-116) Troponin I Quantitative < 0.017 ng/mL (0.000-0.055) Total Protein 7.5 g/dL (6.4-8.2) Albumin 4.0 g/dL (3.4-5.0) Albumin/Globulin Ratio 1.1 (1.0-1.7) Lipase 105 U/L (73-393) Neutrophils (%) (Auto) 73 % (31-73) Lymphocytes (%) (Auto) 16 % (24-48) Monocytes (%) (Auto) 10 % (0-9) Eosinophils (%) (Auto) 1 % (0-3) Basophils (%) (Auto) 0 % (0-3) Neutrophils # (Auto) 6.9 x10^3/uL (1.8-7.7) Lymphocytes # (Auto) 1.5 x10^3/uL (1.0-4.8) Monocytes # (Auto) 0.9 x10^3/uL (0.0-1.1) Eosinophils # (Auto) 0.1 x10^3/uL (0.0-0.7) Basophils # (Auto) 0.0 x10^3/uL (0.0-0.2) Images Images CT report suggestive of SBO Assessment/Plan Assessment/Plan SBO, favor gastroenteritis appears clinically improved will start clears and check KUB in AM d/w pt and pt's supportive family. Thanks for consult! BETTY BURNHAM MD Jan 31, 2019 18:05
[2019-01-31 19:00] VITALS: BP 117/62
[2019-01-31 23:00] VITALS: BP 113/51
[2019-02-01 03:00] VITALS: BP 108/50
[2019-02-01 07:00] VITALS: BP 103/46
--- NOTE | 2019-02-01 07:27 | EKG ---
[facility] [address] [place] [address] Test Date: 2019-01-30 Test Time: 19:47:48 Pat Name: MYA KIMBALL Department: Room: Gender: F Municipal Engineer: : 1955 Requested By: YOEL HALEY Order Number: [id number] Reading MD: Measurements Intervals [place] Rate: 58 P: 39 IN: 146 QRS: 28 QRSD: 80 T: 49 QT: 404 QTc: 400 Interpretive Statements SINUS RHYTHM NO SPECIFIC ECG ABNORMALITIES RI6.01 Unconfirmed report No previous ECG available for comparison
[2019-02-01] MEDS: FAMOTIDINE 20 MG/2 ML VIAL IVP SCH (08:37)
--- NOTE | 2019-02-01 09:48 | NUR ---
SS following for discharge planning. SS reviewed pt chart. Pt is from home with spouse and is currently on room air. No discharge needs noted at this time. SS will continue to follow for discharge planning.
--- NOTE | 2019-02-01 10:09 | RAD ---
Supine and upright views of the abdomen compared to CT scan of the abdomen and pelvis dated 01/30/2019 for small bowel obstruction. FINDINGS: There is scattered abdominal bowel gas in a nonobstructive pattern, with air and stool seen to the level of the rectum. There is a paucity of small bowel gas. No free air is identified. Innumerable phleboliths are seen throughout the pelvis. There is been a prior mid thoracic kyphoplasty. IMPRESSION: 1. Nonobstructive nonspecific bowel gas pattern, with air and stool seen to the level of the rectum. Electronically signed by: Gabriel Stratton MD (02/01/2019 10:06 AM) [facility]
--- NOTE | 2019-02-01 10:26 | PDOC3 ---
Discharge Summary Visit Information Date of Admission: Jan 30, 2019 Date of Discharge: Feb 01, 2019 Admitting Diagnosis Comment: acute gastroenteritis Final Diagnosis Problems Medical Problems: (1) Small bowel obstruction Status: Acute Brief Hospital Course Allergies Allergies Coded Allergies Type Severity Reaction Last Updated Verified No Known Drug Allergies 01/30/19 No Vital Signs Vital Signs Date Time Temp Pulse Resp B/P (MAP) Pulse Ox O2 Delivery O2 Flow Rate FiO2 02/01/19 07:00 97.4 57 20 103/46 (65) 99 Room Air 97.4 Lab Results Laboratory Tests Test 01/30/19 19:05 01/30/19 19:45 01/31/19 04:55 Urine Collection Type Unknown Urine Color Yellow Urine Clarity Clear Urine pH 5.5 Urine Specific [place] 1.025 Urine Protein Negative mg/dL (NEG-TRACE) Urine Glucose (UA) Negative mg/dL (NEG) Urine Ketones (Stick) 40 mg/dL (NEG) Urine Blood Negative (NEG) Urine Nitrite Negative (NEG) Urine Bilirubin Negative (NEG) Urine Urobilinogen Dipstick 0.2 mg/dL (0.2 mg/dL) Urine Leukocyte Esterase Trace (NEG) Urine RBC Occ /HPF (0-2) Urine WBC 1-4 /HPF (0-4) Urine Squamous Epithelial Cells Few /LPF Urine Bacteria Few /HPF (0-FEW) White Blood Count 13.0 x10^3/uL (4.0-11.0) 9.4 x10^3/uL (4.0-11.0) Red Blood Count 4.62 x10^6/uL (3.50-5.40) 4.20 x10^6/uL (3.50-5.40) Hemoglobin 14.2 g/dL (12.0-15.5) 13.0 g/dL (12.0-15.5) Hematocrit 41.5 % (36.0-47.0) 38.3 % (36.0-47.0) Mean Corpuscular Volume 90 fL (79-100) 91 fL (79-100) Mean Corpuscular Hemoglobin 31 pg (25-35) 31 pg (25-35) Mean Corpuscular Hemoglobin Concent 34 g/dL (31-37) 34 g/dL (31-37) Red Cell Distribution Width 13.3 % (11.5-14.5) 13.0 % (11.5-14.5) Platelet Count 266 x10^3/uL (140-400) 234 x10^3/uL (140-400) Sodium Level 141 mmol/L (136-145) 145 mmol/L (136-145) Potassium Level 3.9 mmol/L (3.5-5.1) 4.1 mmol/L (3.5-5.1) Chloride Level 103 mmol/L (98-107) 110 mmol/L (98-107) Carbon Dioxide Level 27 mmol/L (21-32) 28 mmol/L (21-32) Anion Gap 11 (6-14) 7 (6-14) Blood Urea Nitrogen 16 mg/dL (7-20) 11 mg/dL (7-20) Creatinine 0.9 mg/dL (0.6-1.0) 0.8 mg/dL (0.6-1.0) Estimated GFR (Cockcroft-Gault) 63.2 72.4 BUN/Creatinine Ratio 18 (6-20) Glucose Level 105 mg/dL (70-99) 85 mg/dL (70-99) Calcium Level 9.8 mg/dL (8.5-10.1) 8.4 mg/dL (8.5-10.1) Total Bilirubin 0.6 mg/dL (0.2-1.0) Aspartate Amino Transf (AST/SGOT) 16 U/L (15-37) Alanine Aminotransferase (ALT/SGPT) 13 U/L (14-59) Alkaline Phosphatase 89 U/L (46-116) Troponin I Quantitative < 0.017 ng/mL (0.000-0.055) Total Protein 7.5 g/dL (6.4-8.2) Albumin 4.0 g/dL (3.4-5.0) Albumin/Globulin Ratio 1.1 (1.0-1.7) Lipase 105 U/L (73-393) Neutrophils (%) (Auto) 73 % (31-73) Lymphocytes (%) (Auto) 16 % (24-48) Monocytes (%) (Auto) 10 % (0-9) Eosinophils (%) (Auto) 1 % (0-3) Basophils (%) (Auto) 0 % (0-3) Neutrophils # (Auto) 6.9 x10^3/uL (1.8-7.7) Lymphocytes # (Auto) 1.5 x10^3/uL (1.0-4.8) Monocytes # (Auto) 0.9 x10^3/uL (0.0-1.1) Eosinophils # (Auto) 0.1 x10^3/uL (0.0-0.7) Basophils # (Auto) 0.0 x10^3/uL (0.0-0.2) Brief Hospital Course Ms. Draper is a 63 old white female who came in for SBO vs AGE. GS consulted, CT shows SBO but clinically improved after BM<KUB pending,. CLinically looking normal, if neg KUB, home today with no RX needed, Likely AGE< NOT SBO Pt seen and examined dc < 30 Discharge Information Condition at Discharge: Improved, Stable Disposition/Orders: D/C to Home DORON FLORES MD Feb 01, 2019 10:26
--- NOTE | 2019-02-01 10:43 | PDOC ---
SURGICAL PROGRESS NOTE Subjective tolerating clears no pain no n/v had stool Vital Signs Vital Signs Date Time Temp Pulse Resp B/P (MAP) Pulse Ox O2 Delivery O2 Flow Rate FiO2 02/01/19 07:00 97.4 57 20 103/46 (65) 99 Room Air 97.4 I&O Intake and Output0 02/01/19 06:59 Intake Total 650 ml Balance 650 ml Intake Oral 650 ml General: Alert, Oriented X3, Cooperative, No acute distress Abdomen: Soft, No tenderness Labs Laboratory Tests Test 01/30/19 19:05 01/30/19 19:45 01/31/19 04:55 Urine Collection Type Unknown Urine Color Yellow Urine Clarity Clear Urine pH 5.5 Urine Specific [place] 1.025 Urine Protein Negative mg/dL (NEG-TRACE) Urine Glucose (UA) Negative mg/dL (NEG) Urine Ketones (Stick) 40 mg/dL (NEG) Urine Blood Negative (NEG) Urine Nitrite Negative (NEG) Urine Bilirubin Negative (NEG) Urine Urobilinogen Dipstick 0.2 mg/dL (0.2 mg/dL) Urine Leukocyte Esterase Trace (NEG) Urine RBC Occ /HPF (0-2) Urine WBC 1-4 /HPF (0-4) Urine Squamous Epithelial Cells Few /LPF Urine Bacteria Few /HPF (0-FEW) White Blood Count 13.0 x10^3/uL (4.0-11.0) 9.4 x10^3/uL (4.0-11.0) Red Blood Count 4.62 x10^6/uL (3.50-5.40) 4.20 x10^6/uL (3.50-5.40) Hemoglobin 14.2 g/dL (12.0-15.5) 13.0 g/dL (12.0-15.5) Hematocrit 41.5 % (36.0-47.0) 38.3 % (36.0-47.0) Mean Corpuscular Volume 90 fL (79-100) 91 fL (79-100) Mean Corpuscular Hemoglobin 31 pg (25-35) 31 pg (25-35) Mean Corpuscular Hemoglobin Concent 34 g/dL (31-37) 34 g/dL (31-37) Red Cell Distribution Width 13.3 % (11.5-14.5) 13.0 % (11.5-14.5) Platelet Count 266 x10^3/uL (140-400) 234 x10^3/uL (140-400) Sodium Level 141 mmol/L (136-145) 145 mmol/L (136-145) Potassium Level 3.9 mmol/L (3.5-5.1) 4.1 mmol/L (3.5-5.1) Chloride Level 103 mmol/L (98-107) 110 mmol/L (98-107) Carbon Dioxide Level 27 mmol/L (21-32) 28 mmol/L (21-32) Anion Gap 11 (6-14) 7 (6-14) Blood Urea Nitrogen 16 mg/dL (7-20) 11 mg/dL (7-20) Creatinine 0.9 mg/dL (0.6-1.0) 0.8 mg/dL (0.6-1.0) Estimated GFR (Cockcroft-Gault) 63.2 72.4 BUN/Creatinine Ratio 18 (6-20) Glucose Level 105 mg/dL (70-99) 85 mg/dL (70-99) Calcium Level 9.8 mg/dL (8.5-10.1) 8.4 mg/dL (8.5-10.1) Total Bilirubin 0.6 mg/dL (0.2-1.0) Aspartate Amino Transf (AST/SGOT) 16 U/L (15-37) Alanine Aminotransferase (ALT/SGPT) 13 U/L (14-59) Alkaline Phosphatase 89 U/L (46-116) Troponin I Quantitative < 0.017 ng/mL (0.000-0.055) Total Protein 7.5 g/dL (6.4-8.2) Albumin 4.0 g/dL (3.4-5.0) Albumin/Globulin Ratio 1.1 (1.0-1.7) Lipase 105 U/L (73-393) Neutrophils (%) (Auto) 73 % (31-73) Lymphocytes (%) (Auto) 16 % (24-48) Monocytes (%) (Auto) 10 % (0-9) Eosinophils (%) (Auto) 1 % (0-3) Basophils (%) (Auto) 0 % (0-3) Neutrophils # (Auto) 6.9 x10^3/uL (1.8-7.7) Lymphocytes # (Auto) 1.5 x10^3/uL (1.0-4.8) Monocytes # (Auto) 0.9 x10^3/uL (0.0-1.1) Eosinophils # (Auto) 0.1 x10^3/uL (0.0-0.7) Basophils # (Auto) 0.0 x10^3/uL (0.0-0.2) Problem List Problems Medical Problems: (1) Small bowel obstruction Status: Acute Assessment/Plan xrays nonobstructive ok to advance diet and can DC home if tolerates TAMMY LINDSEY INS[employer]ANCE OFFICE SUPERVISOR Feb 01, 2019 10:43
[2019-02-01 11:00] VITALS: BP 115/52
--- NOTE | 2019-02-01 13:18 | NUR ---
Discharge Note: MYA KIMBALL Discharge instructions and discharge home medications reviewed with Patient and a copy given. All questions have been answered and understanding verbalized. The following instructions and handouts were given: ABD Pain Discontinued lines and drains: Peripheral IV intact. Patient discharged to Home or Self Care with Spouse via Ambulated
== END 2019-02-01 13:22 | disposition home or self-care (01) | DRG 392 ==
LOC: ER 18:53 → 4 NORTH 21:18
PROVIDERS: ADMIT Family Medicine; ATTEND Family Medicine
DX: K52.9 Noninfective gastroenteritis and colitis, unspecified (principal); Z90.710 Acquired absence of both cervix and uterus; K59.00 Constipation, unspecified
CPT/HCPCS: 36415; 74021; 74177; 80048; 80053; 81001; 83690; 84484; 85025; 85027; 93005; J0780; J1885; J2270; J2405; J3490; J7030; J7040; Q9967; 99285-25; G0378